=== PATIENT | female | born 1985 | race Caucasian/White ===

== ENCOUNTER 2024-09-14 12:30 | Outpatient (CLI) | payer OTHER, SELFPAY ==
--- NOTE | ~2024-09-14 | MM_ITS ---
EXAMINATION: MM screening heri BI w wander HISTORY: Screening mammogram TECHNIQUE: Craniocaudal and mediolateral oblique 3-D tomosynthesis images were obtained and synthetic 2-D images were generated. CAD analysis was submitted and interpreted. COMPARISON: No prior mammogram is available for comparison at this institution. BREAST PARENCHYMAL COMPOSITION:Not Dense. There are scattered areas of fibroglandular density. FINDINGS: There is a 2.0 x 1.4 cm ovoid mass at the upper, outer right breast. Suspected additional 8 mm mass at the lower, inner right breast. No mass lesion or distortion seen in left breast. No susp icious microcalcifications. IMPRESSION: 2.0 x 1.4 cm upper, outer right breast mass. Suspected additional 8 mm lower, inner right breast mass . Spot compression views and ultrasound recommended for further evaluation. BI-RADS Category 0: Incomplete: Needs additional imaging evaluation. Reviewed, dictated and finalized at location . IMPRESSION: 2.0 x 1.4 cm upper, outer right breast mass. Suspected additional 8 mm lower, i nner right breast mass. Spot compression views and ultrasound recommended for f urther evaluation. BI-RADS Category 0: Incomplete: Needs additional imaging evaluation.
== END 2024-09-14 12:31 | disposition home or self-care (01) ==
LOC: MICIMG 12:31
DX: N63.11 Unspecified lump in the right breast, upper outer quadrant (principal); Z12.31 Encounter for screening mammogram for malignant neoplasm of breast
CPT/HCPCS: 77063; 77067

== ENCOUNTER 2024-10-06 07:45 | Outpatient (CLI) | payer OTHER, SELFPAY ==
--- NOTE | ~2024-10-06 | MMUS_ITS ---
EXAMINATION: MM diagnostic heri RT w wander, US breast RT limited HISTORY: Right breast mass and right breast asymmetry TECHNIQUE: Additional 3-D tomosynthesis images of the right breast were performed and synthetic 2-D i mages were generated. CAD analysis was submitted and interpreted. High resolution limited right breas t ultrasound was performed. COMPARISON: 09/14/2024 BREAST PARENCHYMAL COMPOSITION:Not Dense. There are scattered areas of fibroglandular density. FINDINGS: MAMMOGRAPHIC FINDINGS: Asymmetry at the lower, inner right breast effaces spot compression. There is a persistent low-densit y round mass at the upper, outer right breast measuring 17 mm in diameter. ULTRASOUND: At the 10:00 position right breast, 9 cm the nipple, there is a 1.4 x 1.7 x 1.2 cm hypoechoic solid m ass, parallel, mildly lobulated borders. IMPRESSION: 1.4 x 1.7 x 1.2 cm solid mass at the 10:00 position right breast, as detailed above. Although the ma ss demonstrates predominantly benign imaging characteristics, percutaneous biopsy should be considere d to establish histologic diagnosis. BI-RADS category 4, suspicious findings. Reviewed, dictated and finalized at location M. EL INSTRUCTOR IMPRESSION: 1.4 x 1.7 x 1.2 cm solid mass at the 10:00 position right breast, as detailed above. Although the mass demonstrates predominantly benign imaging characterist ics, percutaneous biopsy should be considered to establish histologic diagnosis . BI-RADS category 4, suspicious findings.
== END 2024-10-06 07:46 | disposition home or self-care (01) ==
PROVIDERS: PCP Internal Medicine; Visit Provider Internal Medicine
DX: R92.8 Other abnormal and inconclusive findings on diagnostic imaging of breast (principal); N63.11 Unspecified lump in the right breast, upper outer quadrant
CPT/HCPCS: 76642; 77061; 77065; G0279

== ENCOUNTER 2025-05-17 08:56 | Outpatient (CLI) | payer OTHER, SELFPAY ==
--- NOTE | ~2025-05-17 | MMUS_ITS ---
EXAMINATION: MM diagnostic heri RT w wander, US breast RT limited HISTORY: Prior benign right breast biopsy TECHNIQUE: 3-D tomosynthesis images of the right breast were performed and synthetic 2-D images were generated. CAD analysis was submitted and interpreted. High resolution limited right breast ultrasoun d was performed. COMPARISON: 10/06/2024, 09/14/2024 BREAST PARENCHYMAL COMPOSITION:Not Dense. There are scattered areas of fibroglandular density. FINDINGS: MAMMOGRAPHIC FINDINGS: Stable 17 millimeter ovoid mass at the upper, outer right breast with associated biopsy clip. There i s a new low-density circumscribed 8mm mass at the slightly inner, probable upper right breast. No emmie picious microcalcifications. ULTRASOUND: At the 2:00 position right breast, 4 cm from nipple, there is a 6 x 2 x 4 mm circumscribed, parallel hypoechoic mass. IMPRESSION: Stable 17 mm upper, outer right breast mass with associated biopsy clip. Probable benign 6 mm mass in the 2:00 position right breast, as above. Six-month follow-up mammogram and ultrasound recommended. BI-RADS category 3, probably benign findings. Reviewed, dictated and finalized at location M. IMPRESSION: Stable 17 mm upper, outer right breast mass with associated biopsy clip. Probable benign 6 mm mass in the 2:00 position right breast, as above. Six-robert h follow-up mammogram and ultrasound recommended. BI-RADS category 3, probably benign findings.
== END 2025-05-17 08:57 | disposition home or self-care (01) ==
PROVIDERS: PCP Internal Medicine; Visit Provider Surgery
DX: N63.11 Unspecified lump in the right breast, upper outer quadrant (principal); R92.8 Other abnormal and inconclusive findings on diagnostic imaging of breast
CPT/HCPCS: 76642; 77061; 77065; G0279

== ENCOUNTER 2025-09-09 12:18 | Emergency (ER) | payer OTHER, SELFPAY ==
--- OUTSIDE RECORDS SUMMARY | 2024-08-17 04:45 | XMS_ITS ---
Author Organization [facility] [employer] [address] [facility] ([address]) Address [address] [place] [phone] Care Team Providers Care Networks Software Consultant Name Role Phone Christophe Banegas MD Primary Care Provider Reilly Kirkland [phone] REASON FOR VISIT BHRT Pellet Insertion #2 Medications Medication SIG (Take, Route, Frequency, Duration) Notes Start Date End Date Status YARD TRUCK DRIVER Thyroid 15 MG 1 tablet on an empty stomach Orally Once a day; Duration: 30 days Patient isn't taking at this time. She is on Levothyroxine and doesn't want to switch. Active YARD TRUCK DRIVER Thyroid 90 MG 1 tablet on an empty stomach Orally Once a day; Duration: 30 days Patient isn't taking. Using Levothyroxine. Active VSL#3 - 2 cap(s) orally once a day Active Social History Sex Assigned At : Social History Observation Description Sex Assigned At Female Encounters Encounter Location Date Provider Diagnosis [facility] [address] [place] [phone] 08/17/2024 Reilly Nixon Hormone replacement therapy Z79.890 and Hypothyroidism, unspecified E03.9 Assessments Encounter Date Diagnosis (ICD Code) Assessment Notes Treatment Notes Treatment Clinical Notes Section Notes 08/17/2024 Hormone replacement therapy (ICD-10 - Z79.890) Pellet insertion #1 05/11/2024 Post-insertion labs 06/22/2024 Pellet insertion #2 08/17/2024 Pellet Insertion #3 11/09/2024 (or first week of 2024) Testosterone only HBRT - 150 mg daily - no estrogen replacement. Check labs in 6 weeks. Pellet #2 in 3-4 months. Was encourgaed to start YARD TRUCK DRIVER Thyroid and transition off Synthroid but not taking. Consider starting Iodine and DIM. 08/17/2024 Hypothyroidism, unspecified (ICD-10 - E03.9) Plan Of Treatment Medication Medication Name Sig Start Date Stop Date Notes YARD TRUCK DRIVER Thyroid 15 MG 1 tablet on an empty stomach Orally Once a day; Duration: 30 days Patient isn't taking at this time. She is on Levothyroxine and doesn't want to switch. YARD TRUCK DRIVER Thyroid 90 MG 1 tablet on an empty stomach Orally Once a day; Duration: 30 days Patient isn't taking . Using Levothyroxine. Treatment Notes Assessment Notes Hormone replacement therapy Pellet insertion #1 05/11/2024 Post-insertion labs 06/22/2024 Pellet insertion #2 08/17/2024 Pellet Insertion #3 11/09/2024 (or first week of 2024) Testosterone only HBRT - 150 mg daily - no estrogen replacement. Check labs in 6 weeks. Pellet #2 in 3-4 months. Was encourgaed to start YARD TRUCK DRIVER Thyroid and transition off Synthroid but not taking. Consider starting Iodine and DIM. Next Appt Details Follow Up: 3 Months, Reason: BHRT Pellet Insertion Procedure Notes * Category Sub-Category Detail Notes Quell: Metabolic, Hormone, BHRT Pellet Insertion Female Pellet Insertion Testosterone Pellet 1: TESTOSTERONE 100 mg (C-III) Lot Number:: [id number] Expiration:: 01/21/2025 Testosterone Pellet 2: TESTOSTERONE 50 m g (C-III) Lot Number:: [id number] Expiration:: 01/15/2025 Estrogen Pellet: None Insertion Site:: Left buttock (upper out er quadrant) Procedure Note:: The left bu ttock was sterilized and draped, The insertion site was anesthetized with a mixture of 1% lidocaine, 1% lidocaine with epinephrine and sodium bicarbonate, A scalpel was used to make a 5 mm incision, The trocar was inserted in the line of anesthetized tissue and the pellet(s) were inserted, The trocar was removed and a 2X2 dressing was placed over the site and pressure was held for 3 minutes, The 2x2 was then disposed and site was closed with 3 Steri-Strips placed with alternating tension and a fresh folded 2X2 was placed on top of the Steri-Strips and site covered with a Tegaderm, Post-care instruction were provided, and no submersion or LE exercise for at least 72 hours, Report any wound changes, constitutional symptoms or pellet extrusion(s). Progress Notes * ADAN February OB: 3 (40 yo F)Acc No.[id number]:08/17/2024 EP Pellet Insertion Patient: Kevin HEMPHILL February Jarad Provider: Edward Nixon MD :1985 A ge:39 Y S ex:Female Date:08/17/2024 Address:[address] [place], [place] [phone] Pcp:Christophe Banegas MD Subjective: * Chief Complaints: * 1 . BHRT Pellet Insertion #2. * HPI: * Introduction: The risks, benefits & alternatives were discussed regarding available treatment options. A treatment path was determined after reviewing the patients medical records, our verbal discussions and via joint decision-making Consents for our planned treatments were signed and are on file. * Medical History: * Medications: T aking YARD TRUCK DRIVER Thyroid 90 MG Tablet 1 tablet on an empty stomach Orally Once a day , Notes to Pharmacist: Start 90 mg AM x 1 week, then increase to 105 mg thereafter as tolerated and stop all forms of other thyroid supplementation., Taking YARD TRUCK DRIVER Thyroid 15 MG Tablet 1 tablet on an empty stomach Orally Once a day , Notes to Pharmacist: Add 15 mg to 90 mg after 1 week of 90 mg AM for a total of 105 mg daily thereafter as tolerated., Taking VSL#3 - capsule 2 cap(s) orally once a day Objective: * Vitals: Assessment: * Assessment: 1. H ormone replacement therapy - Z79.890 (Primary) 2 . H ypothyroidism, unspecified - E03.9 Plan: * Treatment: 2. H ypothyroidism, unspecified Hold YARD TRUCK DRIVER Thyroid Tablet, 90 MG, 1 tablet on an empty stomach, Orally, Once a day, 30 days, 30, Refills 1, Notes to Pharmacist: Patient isn't taking. Using Levothyroxine.; H old YARD TRUCK DRIVER Thyroid Tablet, 15 MG, 1 tablet on an empty stomach, Orally, Once a day, 30 days, 30, Refills 1, Notes to Pharmacist: Patient isn't taking at this time. She is on Levothyroxine and doesn't want to switch.. * Procedures: Q uell: Metabolic, Hormone, BHRT Pellet Insertion: Female Pellet Insertion T estosterone Pellet 1 T ESTOSTERONE 100 mg (C-III) L ot Number: [id number] E xpiration: 0 01/21/2025 T estosterone Pellet 2 T ESTOSTERONE 50 mg (C-III) L ot Number: [id number] E xpiration: 0 01/15/2025 E strogen Pellet N one I nsertion Site: L eft buttock (upper outer quadrant) P rocedure Note: T he left buttock was sterilized and draped, The insertion site was anesthetized with a mixture of 1% lidocaine, 1% lidocaine with epinephrine and sodium bicarbonate, A scalpel was used to make a 5 mm incision, The trocar was inserted in the line of anesthetized tissue and the pellet(s) were inserted, The trocar was removed and a 2X2 dressing was placed over the site and pressure was held for 3 minutes, The 2x2 was then disposed and site was closed with 3 Steri-Strips placed with alternating tension and a fresh folded 2X2 was placed on top of the Steri-Strips and site covered with a Tegaderm, Post-care instruction were provided, and no submersion or LE exercise for at least 72 hours, Report any wound changes, constitutional symptoms or pellet extrusion(s). * Follow Up: 3 Months (Reason: BHRT Pellet Insertion) * Billing Information: * Visit Code: * Procedure Codes: 34807 Quell BHRT Female Pellet Insertion (Employee). * Electronic signature of Pam Nixon MD, FAAAAI on 09/09/2025 at 12:22 PM CDT Sign off status: Pending * Provider: Edward Nixon MD Date: Generated for Violet marquez/Edgar/Kimmieitting on: 12:22 PM CDT History and Physical Notes * HPI (History of Present Illness) Category Sub-Category Detail Notes Category Not es *Introduction The risks, shwetha efits & alternatives were discussed regarding available treatment options. A treatment path was determined after reviewing the patients medical records, our verbal discussions and via joint decision-making Consents for our planned treatments were signed and are on file
--- OUTSIDE RECORDS SUMMARY | 2024-12-20 12:30 | XMS_ITS ---
Author Organization [facility] [employer] [place] ([address]) Address [address] [place] [phone] Care Team Providers Care Shingle Shearing Machine Operator Name Role Phone Makenzie CHAIREZ, Christophe Primary Care Provider Reilly Kirkland [phone] REASON FOR VISIT BHRT Pellet Insertion Social History Sex Assigned At : Social History Observation Description Sex Assigned At Female Encounters Encounter Location Date Provider Diagnosis [facility] [employer] [facility] ([address]) [address] [place] [phone] 12/20/2024 Reilly Nixon Plan Of Treatment No Information Progress Notes * Nila ARELLANO MDOB: 3 (40 yo F)Acc No.[id number]:12/20/2024 EP Pellet Insertion Patient: Nila PARNELL Provider: Edward Nixon MD :1985 A ge:39 Y S ex:Female Date:12/20/2024 Address:[address] [place], [place] [phone] Pcp:Christophe Banegas MD Subjective: * Chief Complaints: * 1 . BHRT Pellet Insertion. * Medical History: Objective: * Vitals: Assessment: Plan: * Treatment: * Billing Information: * Visit Code: * Procedure Codes: * Electronic signature of Pam Nixon MD, FAAAAI on 09/09/2025 at 12:21 PM CDT Sign off status: Pending * Provider: Edward Nixon MD Date: 12/20/2024 Generated for Printi ng/Faxing/eTransmitting on: 1 12:21 PM CDT
--- OUTSIDE RECORDS SUMMARY | 2025-01-03 08:45 | XMS_ITS ---
Author Organization [facility] ([address]) Address [address] [place] [phone] Care Team Providers Care Captain/Airline Pilot Name Role Phone Christophe Banegas MD Primary Care Provider Reilly Kirkland [phone] REASON FOR VISIT BHRT Pellet Insertion Medications Medication SIG (Take, Route, Frequency, Duration) Notes Start Date End Date Status WINDER HAND Thyroid 90 MG 1 tablet on an empty stomach Orally Once a day; Duration: 30 days Patient isn't taking. Using Levothyroxine. Active VSL#3 - 2 cap(s) orally once a day Active WINDER HAND Thyroid 15 MG 1 tablet on an empty stomach Orally Once a day; Duration: 30 days Patient isn't taking at this time. She is on Levothyroxine and doesn't want to switch. Active Fluconazole 150 MG 1 tablet Orally; Duration: 10 days 09/16/2024 Active Amoxicillin 500 MG 1 capsule Orally every 8 hrs; Duration: 5 days 09/13/2024 Active Social History Sex Assigned At : Social History Observation Description Sex Assigned At Female Encounters Encounter Location Date Provider Diagnosis [facility] ([address]) [address] [place] [phone] 01/03/2025 Reilly Nixon Hormone replacement therapy Z79.890 Assessments Encounter Date Diagnosis (ICD Code) Assessment Notes Treatment Notes Treatment Clinical Notes Section Notes 01/03/2025 Hormone replacement therapy (ICD-10 - Z79.890) Plan Of Treatment No Information Procedure Notes * Category Sub-Category Detail Notes Quell: Metabolic, Hormone, BHRT Pellet Insertion Female Pellet Insertion Testosterone Pellet 1: TESTOSTERONE 100 mg (C-III) Lot Number:: [id number] Expiration:: 06/16/2025 Testosterone Pellet 2: TESTOSTERONE 50 m g (C-III) Lot Number:: [id number] Expiration:: 01/16/2025 Testosterone Pellet 3: None Testosterone/Anastrozole Pellet: None Estrogen Pellet: None Insertion Site:: Right Buttock (upper ou ter quadrant) Procedure Note:: The right b uttock was sterilized and draped, The insertion site [...] ADAN February OB: 3 (40 yo F)Acc No.[id number]:01/03/2025 EP Pellet Insertion Patient: Kevin HEMPHILL Nila Jarad Provider: Edward Nixon MD :1985 A ge:39 Y S ex:Female Date:01/03/2025 Address:[address] [place], [place] [phone] Pcp:Christophe Banegas MD Subjective: * Chief Complaints: * 1 . BHRT Pellet Insertion. * Medical History: * Medications: T aking VSL#3 - capsule 2 cap(s) orally once a day , Taking WINDER HAND Thyroid 90 MG Tablet 1 tablet on an empty stomach Orally Once a day , Notes to Pharmacist: Patient isn't taking. Using Levothyroxine., Taking WINDER HAND Thyroid 15 MG Tablet 1 tablet on an empty stomach Orally Once a day , Notes to Pharmacist: Patient isn't taking at this time. She is on Levothyroxine and doesn't want to switch., Taking Amoxicillin 500 MG Capsule 1 capsule Orally every 8 hrs , Taking Fluconazole 150 MG Tablet 1 tablet Orally Objective: * Vitals: Assessment: * Assessment: 1. H ormone replacement therapy - Z79.890 (Primary) Plan: * Treatment: * Procedures: Q uell: Metabolic, Hormone, BHRT Pellet Insertion: Female Pellet Insertion T estosterone Pellet 1 T ESTOSTERONE 100 mg (C-III) L ot Number: [id number] E xpiration: 0 06/16/2025 T estosterone Pellet 2 T ESTOSTERONE 50 mg (C-III) L ot Number: [id number] E xpiration: 0 01/16/2025 T estosterone Pellet 3 N one T estosterone/Anastrozole Pellet N one E strogen Pellet N one I nsertion Site: R ight Buttock (upper outer quadrant) P rocedure Note: T he right buttock was sterilized and draped, The insertion [...] changes, constitutional symptoms or pellet extrusion(s). * Billing Information: * Visit Code: * Procedure Codes: * Electronic signature of Pam Nixon MD, FAAAAI on 09/09/2025 at 12:21 PM CDT Sign off status: Pending * Provider: Edward Nixon MD Date: 0 01/03/2025 Generated for Violet marquez/Edgar/Mikhail on: 12:21 PM CDT
--- OUTSIDE RECORDS SUMMARY | 2025-01-12 04:45 | XMS_ITS ---
Author Organization [facility] ([address]) Address [address] [place] [phone] Care Team Providers Care Supervisor Hydrochloric Area Name Role Phone Christophe Banegas MD Primary Care Provider Reilly Kirkland [phone] REASON FOR VISIT B12 IM injection; Right Deltoid Medications Medication SIG (Take, Route, Frequency, Duration) Notes Start Date End Date Status Amoxicillin 500 MG 1 capsule Orally every 8 hrs; Duration: 5 days 09/13/2024 Active ABSENCE MANAGEMENT CONSULTANT Thyroid 15 MG 1 tablet on an empty stomach Orally Once a day; Duration: 30 days Patient isn't taking at this time. She is on Levothyroxine and doesn't want to switch. Active Fluconazole 150 MG 1 tablet Orally; Duration: 10 days 09/16/2024 Active ABSENCE MANAGEMENT CONSULTANT Thyroid 90 MG 1 tablet on an empty stomach Orally Once a day; Duration: 30 days Patient isn't taking. Using Levothyroxine. Active VSL#3 - 2 cap(s) orally once a day Active Social History Sex Assigned At : Social History Observation Description Sex Assigned At Female Encounters Encounter Location Date Provider Diagnosis [facility] ([address]) [address] [place] [phone] 01/12/2025 Reilly Nixon Plan Of Treatment No Information Progress Notes * Nila ARELLANO MDOB: 3 (40 yo F)Acc No.[id number]:01/12/2025 Purchase Patient: Nila PARNELL Jarad Provider: Edward Nixon MD :1985 A ge:39 Y S ex:Female Date:01/12/2025 [phone] Pcp:Christophe Banegas MD Subjective: * Chief Complaints: * 1 . B12 IM injection; Right Deltoid. * Medical History: * Medications: T aking VSL#3 - capsule 2 cap(s) orally once a day , Taking ABSENCE MANAGEMENT CONSULTANT Thyroid 90 MG Tablet 1 tablet on an empty stomach Orally Once a day , Notes to Pharmacist: Patient isn't taking. Using Levothyroxine., Taking ABSENCE MANAGEMENT CONSULTANT Thyroid 15 MG Tablet 1 tablet on an empty stomach Orally Once a day , Notes to Pharmacist: Patient isn't taking at this time. She is on Levothyroxine and doesn't want to switch., Taking Amoxicillin 500 MG Capsule 1 capsule Orally every 8 hrs , Taking Fluconazole 150 MG Tablet 1 tablet Orally Objective: * Vitals: Assessment: Plan: * Treatment: * Billing Information: * Visit Code: * Procedure Codes: * Electronic signature of Pam Nixon MD, FAAAAI on 09/09/2025 at 12:22 PM CDT Sign off status: Pending * Provider: Edward Nixon MD Date: 0 01/12/2025 Generated for Violet marquez/Edgar/Kimmieitting on: 1 12:22 PM CDT
--- OUTSIDE RECORDS SUMMARY | 2025-05-23 12:30 | XMS_ITS ---
Author Organization [facility] [employer] [place] ([address]) Address [address] [place] [phone] Care Team Providers Care Outreach Analyst Name Role Phone Makenzie CHAIREZ, Christophe Primary Care Provider Reilly Kirkland [phone] REASON FOR VISIT BHRT Pellet Insertion Social History Sex Assigned At : Social History Observation Description Sex Assigned At Female Encounters Encounter Location Date Provider Diagnosis [facility] [employer] [facility] ([address]) [address] [place] [phone] 05/23/2025 Reilly Nixon Plan Of Treatment No Information Progress Notes * Nila ARELLANO MDOB: 3 (40 yo F)Acc No.[id number]:05/23/2025 EP Pellet Insertion Patient: Nila PARNELL Provider: Edward Nixon MD :1985 A ge:39 Y S ex:Female Date:05/23/2025 Address:[address] [place], [place] [phone] Pcp:Christophe Banegas MD Subjective: * Chief Complaints: * 1 . BHRT Pellet Insertion. * Medical History: Objective: * Vitals: Assessment: Plan: * Treatment: * Billing Information: * Visit Code: * Procedure Codes: * Electronic signature of Pam Nixon MD, FAAAAI on 09/09/2025 at 12:22 PM CDT Sign off status: Pending * Provider: Edward Nixon MD Date: 0 05/23/2025 Generated for Printi ng/Faxing/eTransmitting on: 1 12:22 PM CDT
--- OUTSIDE RECORDS SUMMARY | 2025-09-09 12:21 | XMS_ITS | Clinical Summary ---
Author Organization [facility] Address [address] [place] [address] Care Team Providers Care Photonics Technician Name Role Phone Unavailable Primary Care Provider Unavailabl e Source Comments [facility],non-owned Affiliates and Associated Physician Practices is amultiple site organization consisting of ambulatory clinics and hospital sitesin [place], [place], [place] and [place]. This disclosure is being madepursuant to the Care Everywhere program and may not contain all information available regarding this patient. Last updated 18.[facility] Social History Tobacco Use Types Packs/Day Years Used Date Smoking Tobacco: Never Assessed Comments Unknown Sex and Gender Information Value Date Recorded Sex Assigned at Not on file Legal Sex Female 3:28 PM CDT Gender Identity Not on file Sexual Orientation Not on file Plan of Treatment Health Maintenance Due Date Last Done Comments LIPID TESTING 1985 MAMMOGRAM 1985 HIV SCREENING 1998 HEPATITIS C SCREENING 05/26/2001 DTAP/TDAP/TD VACCINES (1 - Tdap) 2002 HEPATITIS B VACCINE (1 of 3 - 19+ 3-dose series) 2002 HPV VACCINE (1 - 3-dose SCDM series) 2010 DEPRESSION SCREENING 11/17/2024 COVID-19 VACCINE (1 - 2023-2 5 season) 2025 INFLUENZA VACCINE (#1) 2025 ZOSTER VACCINE (1 of 2) 2033 HIB VACCINE Aged Out No longer eligi ble based on patient's age to complete this topic MENINGOCOCCAL (Group B) VACC INE SHARED DECISION-MAKING Aged Out No longer eligibl e based on patient's age to complete this topic MENINGOCOCCAL GROUPS A/C/Y/W VACCINE Aged Out No longer eligible b ased on patient's age to complete this topic PNEUMOCOCCAL VACCINE Aged Out No long er eligible based on patient's age to complete this topic Insurance [facility]
--- OUTSIDE RECORDS SUMMARY | 2025-09-09 12:21 | XMS_ITS | Clinical Summary ---
Author Organization [facility] [address] [facility] Address 130 [facility] [place] [address] Care Team Providers Care Electric Detector Operator Name Role Phone Christophe Banegas MD Primary Care Provider + Allergies Active Allergy Reactions Criticality Noted Date Comments Meloxicam Rash Medium 04/02/2019 rash Morphine Itching Low 08/24/2014 Itching Medications cetirizine (ZyrTEC) 10 mg tablet Take 1 tablet (10 mg total) by mouth daily Takes 2 tablets daily Active predniSONE (DELTASONE) 20 mg tabletIndicatio ns:Olecranon bursitis of right elbow Two tablets once a day for 5 days, after that 1 tablet once a day for 5 days 15 tablet 01/14/20 25 Active traMADoL (ULTRAM) 50 mg tabletIndicatio ns:Olecranon bursitis of right elbow Take 1 tablet (50 mg total) by mouth every 6 (six) hours as needed for pain for up to 7 days 28 tablet 02/12/20 25 Active valACYclovir (VALTREX) 500 mg tabletIndicatio ns:Herpes simplex Take 2 tablets (1,000 mg total) by mouth 2 (two) times a day as needed (cold sores) 28 tablet 1 06/17/20 25 Active ondansetron (ZOFRAN) 4 mg tabletIndicatio ns:Nausea and vomiting, unspecified vomiting type,Family history of colon cancer,Dysphagi a, unspecified type Take 1 tablet (4 mg) total 30 minutes before starting colonoscopy prep. Use the 2nd tablet as needed for nausea and vomiting. 2 tablet 06/23/20 25 Active LORazepam (ATIVAN) 0.5 mg tabletIndicatio ns:anxiety Take 1 tablet (0.5 mg total) by mouth every 6 (six) hours as needed for anxiety 30 tablet 07/08/20 25 Active phentermine (ADIPEX-P) 37.5 mg tablet Take 1 tablet (37.5 mg total) by mouth daily before breakfast 30 tablet 07/28/20 25 Active butalbital-acet aminophen-caffe ine (ESGIC) 50-325-40 mg per tabletIndicatio ns:Tension headache Take 1 tablet by mouth every 6 (six) hours as needed for headaches 30 tablet 08/02/20 25 Active levothyroxine (SYNTHROID) 175 mcg tabletIndicatio ns:Hypothyroidi sm due to Veena's thyroiditis TAKE 1 TABLET(175 MCG) BY MOUTH DAILY 90 tablet 1 08/15/20 25 Active levothyroxine (SYNTHROID) 175 mcg tabletIndicatio ns:Hypothyroidi sm due to Veena's thyroiditis Take 1 tablet (175 mcg total) by mouth daily 30 tablet 1 06/13/20 25 025 Discontinued Active Problems Problem Noted Date Diagnosed Date Dysphagia 06/17/2025 Assessment & Plan (06/17/2025 11:45 AM CDT): Will refer to GI for EGD Generalized anxiety disorder 06/19/2023 Assessment & Plan (06/17/2025 11:39 AM CDT): Stable.Taking lorazepam infrequently Assessment & Plan (04/16/2024 10:36 AM CDT): Doing better. Taking lorazepam rarely.. Assessment & Plan (06/19/2023 3:57 PM CDT): Situational. Pt needs something short term to calm down.Will consider lorazepam as needed only. If will need to cont over 1 mo, will consider something else like zoloft. Herpes simplex 01/20/2023 Assessment & Plan (06/17/2025 11:39 AM CDT): Recurrent, oral. Need valacyclovir on PRN basis. Assessment & Plan (04/16/2024 10:16 AM CDT): Recurrent, oral. Need valacyclovir on PRN basis. Assessment & Plan (01/20/2023 8:50 AM MOVIE EDITOR): Recurrent, oral. Need valacyclovir on PRN basis. Wellness examination 04/22/2022 Assessment & Plan (06/17/2025 11:50 AM CDT): Patient follows for mammogram every 6 months with general surgeon due to abnormal findings, biopsy was benign. Stress weight loss. Due to history of hysterectomy does not need Pap. Assessment & Plan (04/16/2024 10:17 AM CDT): Screening mammogram ordered last month, patient encouraged to schedule. Assessment & Plan (04/22/2022 10:30 AM CDT): Stress weight loss. History of hysterectomy, no need for Paps. Most recent labs 3 months ago, cholesterol and blood sugar were good. Family history of colon cancer 04/19/2022 Assessment & Plan (06/17/2025 11:43 AM CDT): Sister was diagnosed with neuroendocrine colon cancer in 2022 at 36. Pt needs colonoscopy since 2022, didn't have insurance at that time. Will refer now. Assessment & Plan (04/16/2024 10:15 AM CDT): Sister was diagnosed with neuroendocrine colon cancer in 2022 at 36. Pt needs colonoscopy since last year, didn't have insurance at that time. Will refer now. Assessment & Plan (01/20/2023 8:36 AM MOVIE EDITOR): Sister was diagnosed with neuroendocrine colon cancer, she is 36. Pt needs colonoscopy but don't have insurance now. Will consider doing it as soon she gets insurance. Assessment & Plan (04/19/2022 9:19 AM CDT): Sister was diagnosed with neuroendocrine colon cancer, she is 36. Pt is changing jobs and wanted to check first what insurance she will have and will call us back for referral for colonoscopy. Tension headache 01/07/2022 Assessment & Plan (06/17/2025 11:38 AM CDT): Stable on Fioricet as needed. Assessment & Plan (04/16/2024 10:20 AM CDT): Stable on Fioricet as needed. Assessment & Plan (01/20/2023 8:45 AM MOVIE EDITOR): Stable on Fioricet as needed. Assessment & Plan (04/19/2022 9:02 AM CDT): Better now.Doing chiro and massages. Assessment & Plan (01/07/2022 4:08 PM MOVIE EDITOR): Normal neurological exam. Most likely tension headaches. Onset 1 week ago. Will try Fioricet. Contact our office if no improvement after treatment, develop new symptoms or feeling worse at any point. Fatigue 07/29/2018 Assessment & Plan (06/17/2025 11:47 AM CDT): Patient requested to check testosterone level. She used to do pallets treatment due to low testosterone level and fatigue. Did not do treatments for few months, feeling more tired again. Assessment & Plan (07/09/2019 2:17 PM CDT): Not improved with increasing levothyroxine. Pt has poor sleep, snores. Pt wants to try to lose weight on her own, will call back if will decide to go with sleep study. 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 Overview (01/14/2022): Thyroid peroxidase 245 on 01/14/22 Assessment & Plan (06/17/2025 11:49 AM CDT): Stable on synthroid, thyroid function was normal 1 y ago. Due to check now. Assessment & Plan (04/16/2024 10:16 AM CDT): Stable on synthroid, thyroid function was normal 5 months ago. Assessment & Plan (01/20/2023 8:37 AM MOVIE EDITOR): Cont synthroid, due for TSH. Assessment & Plan (04/19/2022 9:09 AM CDT): Due to check TSH. Otherwise, cont synthroid. Assessment & Plan (09/14/2021 9:15 AM CDT): Stable on Synthroid. Labs ordered. Patient will do it in November when will get insurance. Assessment & Plan (08/02/2020 12:49 PM CDT): Stable on levothyroxine Assessment & Plan (07/09/2019 2:14 PM CDT): levothyroxin was increased from 25 to 50 mg in May, pt advised is due for labs, order on chart. Morbid obesity with BMI of 40.0-44.9, adult 03/18 Assessment & Plan (06/17/2025 11:48 AM CDT): Worsening. BMI Follow-up includes: nutrition counseling. Stress weight loss. Pt didn't take phentermine for 2 weeks, will restart now. Resolved Problems Problem Noted Date Diagnosed Date Resolved Date Olecranon bursitis of right elbow 01/14/2025 06/17/2025 Assessment & Plan (01/14/2025 8:01 AM MOVIE EDITOR): With proximal lateral extensor tendonitis. Ibuprofen alone didn't help. Will try prednisone taper and tramadol for pain. For now hold ibuprofen. Also start using tennis elbow brace daily. Discussed with patient, if will not see any improvement in 7-10 days, call back for referral to ortho to try steroid injection and also physical therapy order Acute bronchitis 03/16/2024 04/02/2024 Assessment & Plan (03/16/2024 1:22 PM CDT): Contact our office if no improvement after treatment, develop new symptoms or feeling worse at any point. Pharyngitis 12/01/2023 03/16/2024 Assessment & Plan (12/01/2023 10:14 AM MOVIE EDITOR): COVID exposure last week. Home COVID test was negative today. Will treat with antibiotic and Medrol Dosepak. Stay home till 12/03. Contact our office if no improvement after treatment, develop new symptoms or feeling worse at any point. Acute viral conjunctivitis of right eye 08/27/2022 01/20/2023 Multiple thyroid nodules 04/22/2022 Assessment & Plan (04/16/2024 10:33 AM CDT): Per thyroid ultrasound in 2018 no malignant features, enlarged thyroid without nodules. For that reason pt doesn;t need follow up US and I remove diagnosis of thyroid nodules. Assessment & Plan (01/20/2023 8:44 AM MOVIE EDITOR): Per thyroid ultrasound in 2018. At that time did not have any malignant features, did not require biopsy. Repeat thyroid ultrasound was ordered last year, was not done. Pt doesn't have insurance now, will consider when will have it again. Assessment & Plan (04/22/2022 10:32 AM CDT): Per thyroid ultrasound in 2018. At that time did not have any malignant features, did not require biopsy. Will order thyroid ultrasound to follow-up. Polyarthralgia 04/19/2022 01/20/2023 Assessment & Plan (04/19/2022 9:04 AM CDT): Will check labs to r/o autoimmune. Influenza A 01/20/2020 08/02/2020 Assessment & Plan (01/20/2020 9:08 AM MOVIE EDITOR): Test is positive for influenza A. Stay off work till 01/23. Stay hydrated. Take motrin for fever as needed. Reactive airway disease 10/01/201907/18 Assessment & Plan (10/01/2019 9:13 AM MOVIE EDITOR): No h/o asthma, was possibly provoked by recent viral URI. Will try singulair for 4 weeks. Reassess if needed after that. Pt declined rx for albuterol. Stated has it at home. Class 2 obesity due to exces s calories with body mass index (BMI) of 39.0 to 39.9 in adult 07/09/2019 06/17/2025 Assessment & Plan (04/16/2024 10:17 AM CDT): Improving, lost 20 lb since last April. Assessment & Plan (01/20/2023 8:42 AM MOVIE EDITOR): Improving, lost 20 lb since last April. Assessment & Plan (04/19/2022 9:11 AM CDT): BMI Follow-up includes: nutrition counseling.Stress weight loss. Assessment & Plan (09/14/2021 9:04 AM CDT): Improving,pt lost 6 lb and working to lose more. Assessment & Plan (08/03/2020 2:29 PM CDT): BMI Follow-up includes: exercise counseling. Discussed options for weight loss. Discussed gastric bypass vs lap band vs. gastric sleeve. Assessment & Plan (07/09/2019 2:18 PM CDT): Worsening, will stop viibryd to see if that will help. Mild episode of recurrent ma vik depressive disorder 07/29/2018 01/20/2023 Assessment & Plan (04/19/2022 9:10 AM CDT): Stable off meds. Assessment & Plan (09/14/2021 9:18 AM CDT): Worsening again. Patient requested to get back on it because it worked well and was well tolerated. I discussed possibility of weight gain. Patient will watch more closely. If will start gaining weight, she will discontinue it. Assessment & Plan (07/09/2019 2:13 PM CDT): Pt requested to d/c viibryd due to weight gain despite all efforts. Pt advised to decrease and take 10 mg qd for one week and stop it. Samples provided Encounters Date Type Department Care Team Description 06/27/2025 Results Follow-Up [facility] [address] [place] [address] Norma Lyon PA Comprehensive metabolic panel, TSH, Lipid panel, Additional followed-up results: 2 06/23/2025 Orders Only [facility] at [address] [place] [address] Bairon Bill MD Nausea and vomiting, unspecified vomiting type (Primary Dx); Family history of colon cancer; Dysphagia, unspecified type 06/17/2025 11:00 AM CDT Office Visit [facility] [address] [place] [address] Norma Lyon PA Wellness examination (Primary Dx); Tension headache; 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; Herpes simplex; Generalized anxiety disorder; Family history of colon cancer; Fatigue, unspecified type; Morbid obesity with BMI of 40.0-44.9, adult (HCC); Screening for cardiovascular condition; Screening for diabetes mellitus; Dysphagia, unspecified type from Last 3 Months Immunizations Immunization Administration Dates Next Due Influenza, Quadrivalent, Spl it, Preservative Free, Intramuscular 08/03/2020 Influenza, Unspecified 06/17/2025(Deferr ed: Patient decision),01/14/2025(Deferred: Patient decision),08/17/2024,12/01/2023(Deferr ed: Patient decision),06/19/2023(Deferred: Patient decision) Tdap 11/19/2010 Surgical History Surgery Date Site/Laterality Comments SECTION 2005, 2007, 2010 TUBAL LIGATION 11/17/2010 - 11/16/2011 HYSTERECTOMY 11/17/2013 - 11/16/2014 FRACTURE SURGERY Left ankle MOLE REMOVAL 03/17/2020 - 04/16/[address] Cabrales. Rt neck BREAST BIOPSY 11/03/2024 Right Medical History Medical History Date Comments Major depressive disorder, recurrent, mild Gastroesophageal reflux disease without esophagi tis Hypothyroidism Family History Medical History Relation Name Comments Heart disease Father Montrell Hypertension Father Montrell No Known Problems Mother Relation Name Status Comments Father Montrell Mother Alive Social History Tobacco Use Types Packs/Day Years Used Date Smoking Tobacco: Never Smokeless Tobacco: Never Tobacco Cessation:Counseling Given: Not Answered Alcohol Use Standard Drinks/Week Comments Yes 0 (1 standard drink = 0.6 oz pur e alcohol) rarely AUDIT-C Answer Date Recorded Q1: How often do you have a drink containing alc ohol? Monthly or less 06/17/2025 Q2: How many drinks containi ng alcohol do you have on a typical day when you are drinking? 1 or 2 06/17/2025 Q3: How often do you have si x or more drinks on one occasion? Never 06/17/2025 PHQ-2 Answer Date Recorded PHQ-2 Total Score 0 06/17/2025 Comments Unknown Sex and Gender Information Value Date Recorded Sex Assigned at Not on file Legal Sex Female 7:34 PM MOVIE EDITOR Gender Identity Female 04/16/2024 9:25 AM CDT Sexual Orientation Not on file Obstetrics History Last Filed Vital Signs Vital Sign Reading Time Taken Comments Blood Pressure 130/70 06/17/2025 11:09 AM CDT Pulse 68 06/17/2025 11:09 AM CDT Temperature 36.6 C (97.8 F) 06/17/2025 11:09 AM CDT Respiratory Rate 16 06/17/2025 11:09 AM CDT Oxygen Saturation 99% 06/17/2025 11:09 AM CDT Inhaled Oxygen Concentration - - Weight 109.1 kg (240 lb 8 oz) 06/17/2025 11:09 A M CDT Height 163.8 cm (5' 4.5) 06/17/2025 11:09 AM CD T Body Mass Index 40.64 06/17/2025 11:09 AM CDT Plan of Treatment Health Maintenance Due Date Last Done Comments Hepatitis C Screening 1983 Varicella Vaccines (1 of 2 - 13+ 2-dose series) 1996 Hepatitis B Screening 2001 HPV Vaccines (1 - 3-dose SCDM series) 2010 DTaP/Tdap/Td Vaccine (2 - Td or Tdap) 11/19/2020 11/19/2010 Covid-19 Vaccine (3 - season) 2025 12/28/2020, 11/30/2020 Influenza Vaccine (#1) 2025 08/17/2024, 2019 Breast Cancer Screening-Mammogram 09/14/2025 09/14/2024 Depression Screening 06/17/2026 06/17/2025, 04/16/2024, 12/01/2023, Additional history exists Regular Well Visit/Exam 18-64 06/17/2026 06/17/2025, 04/16/2024, 04/19/2022 Cervical Cancer Screening Discontinued 06/01/2014 Pneumococcal vaccine <65 Aged Out No longer eligible based on patient's age to complete this topic Procedures Procedure Name Priority Date/Time Associated Diagnosis Comments CBC WITH AUTO DIFFERENTIAL Routine 06/24/2025 8:00 AM CDT Fatigue, unspecified type TOTAL TESTOSTERONE Routine 06/24/2025 8: 00 AM CDT Fatigue, unspecified type LIPID PANEL Routine 06/24/2025 8:00 AM CDT Screening for cardiovascular condition TSH Routine 06/24/2025 8:00 AM CDT 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 COMPREHENSIVE METABOLIC PANEL Routine 06/24/2025 8:00 AM CDT Screening for diabetes mellitus MAMMOGRAPHY Schedule Routine, Read Routine (OP Routine) 09/14/2024 4:14 PM CDT THINPREP PAP Routine 06/01/2014 9:15 AM CDT from Last 3 Months or Most Recently Relevant to Health Maintenance Results * CBC with auto differential (06/24/2025 8:00 AM CDT) WBC 8.6 3.4 - 10.8 x10E3/uL [facility] - 01 RBC 4.91 3.77 - 5.28 x10E6/uL [facility] - 01 Hgb 14.5 11.1 - 15.9 g/dL [facility] - 01 Hct 43.8 34.0 - 46.6 % [facility] - 01 MCV 89 79 - 97 fL [facility] - 01 MCH 29.5 26.6 - 33.0 pg [facility] - 01 MCHC 33.1 31.5 - 35.7 g/dL [facility] - 01 Rdw 12.6 11.7 - 15.4 % [facility] - 01 Platelets 405 150 - 450 x10E3/uL [facility] - 01 Neutrophils pct 67 Not Estab. % [facility] - 01 Lymphs pct 25 Not Estab. % [facility] - 01 Monocytes pct 6 Not Estab. % [facility] - 01 Eosinophils pct 2 Not Estab. % [facility] - 01 Basophil pct 0 Not Estab. % [facility] - 01 Neutrophil abs 5.8 1.4 - 7.0 x10E3/uL [facility] - 01 Lymphs (Absolute) 2.2 0.7 - 3.1 x10E3/uL [facility] - 01 Monocyte abs 0.5 0.1 - 0.9 x10E3/uL [facility] - 01 Eosinophils, abs 0.1 0.0 - 0.4 x10E3/uL [facility] - 01 Basophils, abs 0.0 0.0 - 0.2 x10E3/uL [facility] - 01 Immature Granulocytes 0 Not Estab. % [facility] - 01 Immature Grans (Abs) 0.0 0.0 - 0.1 x10E3/uL [facility] - 01 Blood 06/24/2025 8:00 AM CDT 06/24/2025 Narrative [facility] - 06/25/2025 7:09 AM CDT Performed at: 01 - [facility] [address] [id number] Rehab Director Occupational Therapist: Varun Sorto PhD, Phone: [phone] us Norma ADAMSON LAB BLOOD ORDERABLES Final Result [facility] - 01 * TSH (06/24/2025 8:00 AM CDT) TSH 4.270 0.450 - 4.500 uIU/mL [facility] - 01 Blood 06/24/2025 8:00 AM CDT 06/24/2025 Narrative [facility] - 06/25/2025 12:10 PM CDT Performed at: [address] [place] [id number] Rehab Director Occupational Therapist: Varun Sorto PhD, Phone: [phone] Norma ADAMSON LAB BLOOD ORDERABLES Final Result Performing Organization Address City/[facility] Co de Phone Number [facility] - 01 * Total testosterone (06/24/2025 8:00 AM CDT) [facility] Testosterone 12 4 - 50 ng/dL [facility] - 01 Blood 06/24/2025 8:00 AM CDT 06/24/2025 Narrative [facility] - 06/25/2025 12:10 PM CDT Performed at: [address] [place] [id number] Rehab Director Occupational Therapist: Varun Sorto PhD, Phone: [phone] Norma ADAMSON LAB BLOOD ORDERABLES Final Result Performing Organization Address City/[facility] Co de Phone Number [facility] - 01 * (ABNORMAL) Lipid panel (06/24/2025 8:00 AM CDT) [facility] Cholesterol 205(H) 100 - 199 mg/dL [facility] - 01 Triglycerides 96 0 - 149 mg/dL [facility] - 01 HDL Cholesterol 56 >39 mg/dL [facility] - 01 VLDL 17 5 - 40 mg/dL [facility] - 01 LDL, calculated 132(H) 0 - 99 mg/dL [facility] - 01 Blood 06/24/2025 8:00 AM CDT 06/24/2025 Narrative [facility] - 06/25/2025 8:11 AM CDT Performed at: 01 - [address] [id number] Rehab Director Occupational Therapist: Varun Sorto PhD, Phone: [phone] us Norma ADAMSON LAB BLOOD ORDERABLES Final Result [facility] - 01 * (ABNORMAL) Comprehensive metabolic panel (06/24/2025 8:00 AM CDT) [facility] Glucose 100(H) 70 - 99 mg/dL [facility] - 01 BUN 17 6 - 24 mg/dL [facility] - 01 Creatinine, Serum 0.74 0.57 - 1.00 mg/dL [facility] - 01 eGFR 104 >59 mL/min/1.7 3 [facility] - 01 BUN/creat ratio 23 9 - 23 [facility] - 01 Sodium 139 134 - 144 mmol/L [facility] - 01 Potassium, sr 5.2 3.5 - 5.2 mmol/L [facility] - 01 Chloride 101 96 - 106 mmol/L [facility] - 01 CO2 21 20 - 29 mmol/L [facility] - 01 Calcium 9.7 8.7 - 10.2 mg/dL [facility] - 01 Protein, sr 7.4 6.0 - 8.5 g/dL [facility] - 01 Albumin 4.5 3.9 - 4.9 g/dL [facility] - 01 Globulin, Total 2.9 1.5 - 4.5 g/dL [facility] - 01 Bilirubin, Total 0.3 0.0 - 1.2 mg/dL [facility] - 01 Alk phos 85 44 - 121 IU/L [facility] - 01 AST 24 0 - 40 IU/L [facility] - 01 ALT 45(H) 0 - 32 IU/L [facility] - 01 Blood 06/24/2025 8:00 AM CDT 06/24/2025 Narrative [facility] - 06/25/2025 8:11 AM CDT Performed at: [facility] [id number] Rehab Director Occupational Therapist: Varun Sorto PhD, Phone: [phone] us Norma ADAMSON LAB BLOOD ORDERABLES Final Result [facility] - 01 * MAMMOGRAPHY (09/14/2024 4:14 PM CDT) Anatomical Region Laterality Modality Breast Mammography Historical Provider MD LONG MAMMO PROCEDURES Arti l Result * ThinPrep Pap (06/01/2014 9:15 AM CDT) Thin Prep Pap Smear SEE BELOW () 06/07 7:34 PM CDT [facility][NOTE 3] HISTORICAL RESULTS Comment: Corn [employer] Baler ThinPrep Cytology Final Report ThinPrep Pap Specimen Source Cervix/Endocervix Specimen Adequacy Satisfactory for interpretation, endocervical cells (transformation zone) present. Interpretation Negative for intraepithelial lesion or malignancy. 06/07/14 Pickling Operator: CHAR Garcia(ASCP) 06/07/14 Verified By: CHAR Garcia(ASCP) electronic signature [facility], Department of Pathology For questions regarding this case, call ext. [phone] CPT Code(s) 27368 Clinical History LMP: [id number] : N : N IUD: N Hormone Therapy: N Postmenopausal: N Previous surgery date and type: N Hysterectomy: N Chemotherapy: N SHANIQUA Exposure: N Radiation: N Previous Abnormal Pap? Details: N Diagnostic or Screening Pap Test: Screening Performed by [facility], [address] [place] [address],[place] [id number] [email or web address], Yvan Barr MD - Lab. Director 06/01/2014 9:15 AM CDT 06/01/2014 12:53 PM CDT Jacque Howardgle THIRD RAIL INSTALLER LAB PATHOLOGY ORDERABLES Fin al Result [facility][NOTE 3] HISTORICAL RESULTS from Last 3 Months or Most Recently Relevant to Health Maintenance Insurance Care Teams Electric Detector Operator Relationship Specialty Start Date End Date Christophe Banegas MD [address] [place] [id number] PCP - General Internal Medicine 06/28/19
--- OUTSIDE RECORDS SUMMARY | 2025-09-09 12:21 | XMS_ITS | Encounter Summary ---
Author Organization [facility] Address [address] [place] [address] Care Team Providers Care Interactive Media Project Manager Name Role Phone Unavailable Primary Care Provider Unavailabl e Encounter Details Date Type Department Care Team (Late st Contact Info) Description 04/18/2020 Lab Requisition [facility] DermPath Lab [address] [place] [address] Julius Cabrales MD [address] [place] [address] Social History Tobacco Use Types Packs/Day Years Used Date Smoking Tobacco: Never Assessed Comments Unknown Sex and Gender Information Value Date Recorded Sex Assigned at Not on file Legal Sex Female 3:28 PM CDT Gender Identity Not on file Sexual Orientation Not on file documented as of this encounter Plan of Treatment Not on file documented as of this encounter Procedures Procedure Name Priority Date/Time Associated Diagnosis Comments DERMATOPATHOLOGY Routine 04/14/2020 12:0 0 AM CDT documented in this encounter Results * DERMATOPATHOLOGY (04/14/2020 12:00 AM CDT) Case Report Dermatopathology Report Case: [id number] Authorizing Provider: Julius Cabrales MD Collected: 04/14/2020 12:00 AM Ordering Location: [facility] DermPath Lab Received: 04/18/2020 07:17 AM Pathologist: Sonal Roman MD Specimen: Skin, left shoulder 0 2:25 PM CDT DERMATOPATHOLOGY LABORATORY Final Diagnosis Specimen A. 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 Path# [id number] 0 2:25 PM CDT DERMATOPATHOLOGY LABORATORY Gross Description Specimen A: Received is one formalin filled container labeled with the patient's name and designated left shoulder. The specimen consists of a shave biopsy measuring [id number]. Jar 0. 0 2:25 PM CDT DERMATOPATHOLOGY LABORATORY Microscopic Description Specimen A. SKIN, left shoulder: There are nests of melanocytes at the dermal-epidermal junction. There is melanin pigment in the stratum corneum. Sections show abundant melanin within melanophages around the superficial vascular plexus. 0 2:25 PM CDT DERMATOPATHOLOGY LABORATORY Disclaimer An external and internal positive and negative controls are appropriate for the histochemical, immunohistochemical and immunofluorescence stain(s) in this case (if any), except where stated explicitly. The performance characteristics of the stain(s) cited in this report were developed and its performance characteristic determined by the Dermatopathology Laboratory at [facility], directed by Dr. Ryland Bailey. These tests need not be, and therefore are not, approved by the [place] Food and Drug Administration. The tests are used for clinical purposes. Billing Codes Specimen Charges Stain Charges 38342 1 0 2:25 PM CDT DERMATOPATHOLOGY LABORATORY Embedded Images 0 2:25 PM CDT DERMATOPATHOLOGY LABORATORY Pathology/Cytolog y TISSUE SPECIMEN FROM SKIN / Unknown 04/14/2020 04/18/2020 7:17 AM CDT us Julius Cabrales MD LAB - PATHOLOGY/CYTOLOGY ORDER NELA Final Result DERMATOPATHOLOGY LABORATORY [facility] - Department of Dermatology Vocational Services Specialist [place]/[address] [phone] documented in this encounter Visit Diagnoses Not on filedocumented in this encounter
--- OUTSIDE RECORDS SUMMARY | 2025-09-09 12:21 | XMS_ITS | Clinical Summary ---
Author Organization [facility] Address [address] [place] [address] Care Team Providers Care Customer Sales Service Manager Name Role Phone Christophe Banegas MD Primary Care Provider [phone] Immunizations Immunization Administration Dates Next Due MODERNA COVID-19 (12+) MRNA, LNP-S, PF, 100 MCG/ 0.5 ML DOSE 12/28/2020,11/30/2020 Social History Tobacco Use Types Packs/Day Years Used Date Smoking Tobacco: Never Assessed Comments Unknown Sex and Gender Information Value Date Recorded Sex Assigned at Not on file Legal Sex Female 7:06 PM CDT Gender Identity Not on file Sexual Orientation Not on file Plan of Treatment Health Maintenance Due Date Last Done Comments Cervical Cancer Screening Pa p Smear (Age 30 to 64) Every 3 Years 1983 Annual Physical 1986 Hepatitis C 2001 Hepatitis B Vaccines (1 of 3 - 19+ 3-dose series) 2002 HPV Vaccines (1 - 3-dose SCD M series) 2010 Cervical Cancer Screening Pa p with HPV Testing (Age 30 to 64) Every 5 Years 2013 Cervical Cancer Screening wi th HPV 2013 DTaP, Tdap and Td Vaccines ( 2 - Td or Tdap) 11/19/2020 11/19/2010 COVID-19 Vaccine (3 - 2024-2 6 season) 2025 12/28/2020, 11/30/2020 Influenza Adult (#1) 2025 08/03/2020 Mammogram Screening 11/03/2026 11/03/2024, 04/08/2014 Hepatitis A Vaccines Aged Out No long er eligible based on patient's age to complete this topic Meningococcal B Vaccine Aged Out No l onger eligible based on patient's age to complete this topic Meningococcal Vaccine Aged Out No sarai jim eligible based on patient's age to complete this topic Pneumococcal Vaccine: Pediatrics (0 to 5 Years) and At-Risk Patients (6 to 49 Years) Aged Out No longer eligible b ased on patient's age to complete this topic RSV Immunizations Under 20 Months Aged Out No longer eligible b ased on patient's age to complete this topic Procedures Procedure Name Priority Date/Time Associated Diagnosis Comments MG DIAGNOSTIC RT DIGI Routine 11/03/2024 2:34 PM INSTITUTIONAL ASSET MANAGER Breast mass, right from Last 3 Months or Most Recently Relevant to Health Maintenance Results * MG DIAGNOSTIC RT DIGI (11/03/2024 2:34 PM INSTITUTIONAL ASSET MANAGER) Anatomical Region Laterality Modality Breast Right Mammography 11/03/2024 2:38 PM INSTITUTIONAL ASSET MANAGER Impressions 11/03/2024 2:39 PM INSTITUTIONAL ASSET MANAGER =====IMPRESSION:===== Postbiopsy mammogram, grossly appropriate clip placement. ASSESSMENT: WAITING FOR PATHOLOGY Recommendation: 1: Waiting on Pathology Right COMMENTS: Ordered By: KENDY RUIZ Interpreted By: Gio Bray, 11/03/2024 2:38 PM Narrative 11/03/2024 2:39 PM INSTITUTIONAL ASSET MANAGER [facility] [address] [place] [address] EXAMINATION: Digital right diagnostic mammogram with 3-D tomography EXAM DATE/TIME: 11/03/2024 2:29 PM REASON FOR EXAM: Right breast mass, upper outer quadrant, status post biopsy COMPARISON: Outside facility studies from 10/06/2024 and 09/14/2024 TECHNIQUE: Digital diagnostic mammography of the right breast was performed in addition to 3-D Tomosynthesis technique. . This study was read with the assistance of a computer-aided detection system. TISSUE DENSITY: There are scattered areas of fibroglandular density. FINDINGS: Postbiopsy changes right upper outer quadrant. Grossly appropriate clip placement. us Kendy Ruiz MD MAMMO Final Result from Last 3 Months or Most Recently Relevant to Health Maintenance Insurance [facility] Care Teams Customer Sales Service Manager Relationship Specialty Start Date End Date Christophe Banegas MD [address] [place] [address] PCP - General 10/28/24
--- OUTSIDE RECORDS SUMMARY | 2025-09-09 12:22 | XMS_ITS | Encounter Summary ---
Author Organization [facility] Address [address] [place] [address] Care Team Providers Care Regulatory Affairs Coordinator Name Role Phone Christophe Banegas MD Primary Care Provider + Encounter Details Date Type Department Care Team (Late st Contact Info) Description 11/03/2024 Orders Only [facility] Health Information Management [address] [place] [address] Scanning, Provider Social History Tobacco Use Types Packs/Day Years Used Date Smoking Tobacco: Never Smokeless Tobacco: Never Alcohol Use Standard Drinks/Week Comments Yes 0 (1 standard drink = 0.6 oz pur e alcohol) rarely AUDIT-C Answer Date Recorded Q1: How often do you have a drink containing alc ohol? Monthly or less 04/16/2024 Q2: How many drinks containi ng alcohol do you have on a typical day when you are drinking? 1 or 2 04/16/2024 Q3: How often do you have si x or more drinks on one occasion? 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 ENGINEER Gender Identity Female 04/16/2024 9:25 AM CDT Sexual Orientation Not on file documented as of this encounter Plan of Treatment Not on file documented as of this encounter Procedures Procedure Name Priority Date/Time Associated Diagnosis Comments SCAN - PATHOLOGY 11/03/2024 documented in this encounter Results * SCAN - PATHOLOGY (11/03/2024) us Provider Scanning Final Result documented in this encounter Visit Diagnoses Not on filedocumented in this encounter Care Teams Regulatory Affairs Coordinator Relationship Specialty Start Date End Date Christophe Banegas MD [address] [place] [address] PCP - General Internal Medicine 06/28/19 documented as of this encounter
--- OUTSIDE RECORDS SUMMARY | 2025-09-09 12:22 | XMS_ITS | Patient Health Record ---
Author Organization [facility] ([address]) Address [address] [place] [address] Care Team Providers Care Roof Tile Layer Name Role Phone Makenzie CHAIREZ, Christophe Primary Care Provider Reilly Kirkland Unavailable [phone] Ari Garrett Unavailable [phone] Deborah Payne Unavailable [phone] Results Component Value Reference Range Notes -Testosterone, Serum Reviewed date:12/27/2024 12:18:39 PM Interpretation: Performing Lab:[facility], [address] [place] [id number], Phone - [phone], Director - PhDBrighti Notes/Report: Testosterone 161 4-50 ng/dL -Triiodothyronine (T3),Free, Serum Reviewed date:12/27/2024 12:18:39 PM Interpretation: Performing Lab:[facility], [address] [place] [id number], Phone - [phone], Director - PhDRicalbert b. chandler hospitaluti Notes/Report: Triiodothyronine (T3), Free 3.6 2.0-4.4 pg/mL -Vitamin D, 25-Hydroxy Reviewed date:12/27/2024 12:18:39 PM Interpretation: Performing Lab:[facility], [address] [place] [id number], Phone - [phone], Director - PhDRicalbert b. chandler hospitaluti Notes/Report: Vitamin D, 25-Hydroxy 37.9 30.0-100.0 ng/mL Vitamin D deficiency has been defined by the [place] of [employer] and an Endocrine Society practice guideline as a level of serum 25-OH vitamin D less than 20 ng/mL (1,2). The Endocrine Society went on to further define vitamin D insufficiency as a level between 21 and 29 ng/mL (2). 1. IOM ([place] [employer]). 2010. Dietary reference intakes for calcium and D. [place]: The National AcademDujour App Press. 2. Mitch MF, Radha HERNANDEZ, Jeff NIÑO, et al. Evaluation, treatment, and prevention of vitamin D deficiency: an Endocrine Society clinical practice guideline. JCEM. 2010; 96(0):1911-30. Reason For Referral No Information Medications Medication SIG (Take, Route, Frequency, Duration) Notes Start Date End Date Status Amoxicillin 500 MG 1 capsule Orally every 8 hrs; Duration: 5 days 09/13/2024 Active ASPHALT PLANT WORKER Thyroid 15 MG 1 tablet on an empty stomach Orally Once a day; Duration: 30 days Patient isn't taking at this time. She is on Levothyroxine and doesn't want to switch. Active Fluconazole 150 MG 1 tablet Orally; Duration: 10 days 09/16/2024 Active ASPHALT PLANT WORKER Thyroid 90 MG 1 tablet on an empty stomach Orally Once a day; Duration: 30 days Patient isn't taking. Using Levothyroxine. Active VSL#3 - 2 cap(s) orally once a day Active Social History Sex Assigned At : Social History Observation Description Sex Assigned At Female Problems Problem Type SNOMED Code ICD Code Onset Dates Problem Status W/U Status Risk Notes Problem Hypothyroidism (34822290) Hypothyroidism, unspecified (E03.9) Active confirmed Problem Morbid obesity (disorder) (893175040) Morbid (severe) obesity due to excess calories (E66.01) Active confirmed Problem Sleep apnea (56620589) Sleep apnea, unspecified (G47.30) Active confirmed Problem Obstructive sleep apnea syndrome (disorder) (28317113) Obstructive sleep apnea (adult) (pediatric) (G47.33) Active confirmed Problem Essential hypertension (84160819) Essential (primary) hypertension (I10) Active confirmed Problem Gastro-esophageal reflux disease without esophagitis (838039864) Gastro-esophagea l reflux disease without esophagitis (K21.9) Active confirmed Problem Chronic fatigue syndrome (disorder) (66344318) Chronic fatigue, unspecified (R53.82) Active confirmed Problem Abnormal weight gain (265478667) Abnormal weight gain (R63.5) Active confirmed Problem Hormone replacement therapy (096875044) Hormone replacement therapy (Z79.890) Active confirmed Problem Obesity (954201783) Obesity, unspecified (E66.9) Active confirmed Problem Sleep disorder (98150667) Other sleep disorders (G47.8) Active confirmed Problem Hypersomnia (50322707) Hypersomnia, unspecified (G47.10) Active confirmed Procedures Procedure Date Ordered Date Performed Result Body Sit e Sleep Study WatchPAT 300 (Zoll-Shane) 06/28/2025 N/A Encounters Encounter Location Date Provider Diagnosis [facility] ([address]) [address] [place] [address] 01/03/2025 Reilly Nixon Hormone replacement therapy Z79.890 [facility] ([address]) [address] [place] [address] 01/12/2025 Reilly Nixon [facility] [address] [facility] [address] [place] [address] 06/28/2025 Reilly Nixon Obstructive sleep apnea (adult) (pediatric) G47.33 ; Sleep apnea, unspecified G47.30 ; Snoring R06.83 ; Hypersomnia, unspecified G47.10 ; Other sleep disorders G47.8 and Obesity, unspecified E66.9 [facility] - [place] [address] [place] [address] 09/13/2024 Deborah Payne Acute pharyngitis, unspecified J02.9 [facility] - [place] [address] [place] [address] 09/16/2024 Deborah Payne Candidiasis, unspecified B37.9 [facility] - [place] [address] [place] [address] 09/16/2024 Deborah Payne [facility] - [place] [address] [place] [address] 10/18/2024 Ari Garrett Hypothyroidism, unspecified E03.9 ; Other fatigue R53.83 and Abnormal weight gain R63.5 [facility] - [place] [address] [place] [address] 04/06/2025 Deborah Babin - [facility] [place] ([address]) [address] [place] [address] 06/30/2025 Reilly Nixon Assessments Encounter Date Diagnosis (ICD Code) Assessment Notes Treatment Notes Treatment Clinical Notes Section Notes 09/16/2024 Candidiasis, unspecified (ICD-10 - B37.9) 01/03/2025 Hormone replacement therapy (ICD-10 - Z79.890) 06/28/2025 Sleep apnea, unspecified (ICD-10 - G47.30) 06/28/2025 Obstructive sleep apnea (adult) (pediatric) (ICD-10 - G47.33) WatchPAT Sleep Study Unit was provided to the patient for tonight's planned procedure. Return tomorrow morning by 9 AM. 09/13/2024 Acute pharyngitis, unspecified (ICD-10 - J02.9) 10/18/2024 Hypothyroidism, unspecified (ICD-10 - E03.9) 10/18/2024 Other fatigue (ICD-10 - R53.83) 10/18/2024 Abnormal weight gain (ICD-10 - R63.5) 06/28/2025 Snoring (ICD-10 - R06.83) 06/28/2025 Hypersomnia, unspecified (ICD-10 - G47.10) 06/28/2025 Other sleep disorders (ICD-10 - G47.8) 06/28/2025 Obesity, unspecified (ICD-10 - E66.9) Plan Of Treatment Pending Test Test Name Order Date -HRT Female Pre Pellet 12/16/2023 Sleep Study WatchPAT 300 (Zoll-Shane) 0 06/15/2024 Sleep Study WatchPAT 300 (Zoll-Shane) 0 06/28/2025 Insurance Providers Payer Name Payer Address Payer Phone Subscriber Number Group Number Insured Name Patient Relationship to Insured Coverage Start Date Coverage End Date [facility] [employer] [address] [address] [place] [address] [id number] February Self - patient is the insured Medical (General) History Medical History History ICD Code Essential (primary) hypertension I10
--- OUTSIDE RECORDS SUMMARY | 2025-09-09 12:22 | XMS_ITS | Encounter Summary ---
Author Organization [facility] Facility Care Team Providers Care Assistant Drafter Name Role Phone Christophe Banegas MD Primary Care Provider + Encounter Details Date Type Department Care Team (Latest Contact Info) Description 03/06/2014 Orders Only [facility] ProviderMarlo MD [address] [place] [address] Social History Tobacco Use Types Packs/Day Years Used Date Smoking Tobacco: Never Assessed Comments Unknown Sex and Gender Information Value Date Recorded Sex Assigned at Not on file Legal Sex Female 7:34 PM ENERGY AND CONSERVATION TECHNICIAN Gender Identity Female 04/16/2024 9:25 AM CDT Sexual Orientation Not on file documented as of this encounter Plan of Treatment Not on file documented as of this encounter Procedures Procedure Name Priority Date/Time Associated Diagnosis Comments SCAN - LABS 05/05/2018 12:00 AM CDT documented in this encounter Results * SCAN - LABS (05/05/2018 12:00 AM CDT) Narrative 05/05/2018 12:00 AM CDT Ordered by an unspecified provider. us Historical Provider Final Res ult documented in this encounter Visit Diagnoses Not on filedocumented in this encounter Care Teams Assistant Drafter Relationship Specialty Start Date End Date Christophe Banegas MD [address] [place] [address] PCP - General Internal Medicine 06/28/19 documented as of this encounter
--- OUTSIDE RECORDS SUMMARY | 2025-09-09 12:22 | XMS_ITS | Encounter Summary ---
Author Organization [facility] Facility Care Team Providers Care Contract Modeler Name Role Phone Christophe Banegas MD Primary Care Provider + Encounter Details Date Type Department Care Team (Latest Contact Info) Description 12/29/2017 Orders Only [facility] ProviderMarlo MD [address] [place] [address] Social History Tobacco Use Types Packs/Day Years Used Date Smoking Tobacco: Never Assessed Comments Unknown Sex and Gender Information Value Date Recorded Sex Assigned at Not on file Legal Sex Female 7:34 PM SIZE MAKER Gender Identity Female 04/16/2024 9:25 AM CDT [...] on filedocumented in this encounter Care Teams Contract Modeler Relationship Specialty Start Date End Date Christophe Banegas MD [address] [place] [address] PCP - General Internal Medicine 06/28/19 documented as of this encounter
--- OUTSIDE RECORDS SUMMARY | 2025-09-09 12:22 | XMS_ITS | Encounter Summary ---
Author Organization [facility] Facility Care Team Providers Care Audio Tape Librarian Name Role Phone Christophe Banegas MD Primary Care Provider + Encounter Details Date Type Department Care Team (Latest Contact Info) Description 11/25/2017 Orders Only [facility] ProviderMarlo MD [address] [place] [address] Social History Tobacco Use Types Packs/Day Years Used Date Smoking Tobacco: Never Assessed Comments Unknown Sex and Gender Information Value Date Recorded Sex Assigned at Not on file Legal Sex Female 7:34 PM BUYER GRAIN Gender Identity Female 04/16/2024 9:25 AM CDT [...] on filedocumented in this encounter Care Teams Audio Tape Librarian Relationship Specialty Start Date End Date Christophe Banegas MD [address] [place] [address] PCP - General Internal Medicine 06/28/19 documented as of this encounter
--- OUTSIDE RECORDS SUMMARY | 2025-09-09 12:22 | XMS_ITS | Encounter Summary ---
Author Organization [facility] Facility Care Team Providers Care Vehicle Service Agent Name Role Phone Christophe Banegas MD Primary Care Provider + Encounter Details Date Type Department Care Team (Latest Contact Info) Description 03/04/2014 Orders Only [facility] CLINCON[facility] ProviderMarlo MD [address] [place] [address] Social History Tobacco Use Types Packs/Day Years Used Date Smoking Tobacco: Never Assessed Comments Unknown Sex and Gender Information Value Date Recorded Sex Assigned at Not on file Legal Sex Female 7:34 PM RADIOLOGIC ELECTRONIC SPECIALIST Gender Identity Female 04/16/2024 9:25 AM CDT [...] on filedocumented in this encounter Care Teams Vehicle Service Agent Relationship Specialty Start Date End Date Christophe Banegas MD [address] [place] [address] PCP - General Internal Medicine 06/28/19 documented as of this encounter
--- OUTSIDE RECORDS SUMMARY | 2025-09-09 12:22 | XMS_ITS | Encounter Summary ---
Author Organization [facility] Care Team Providers Care Panel Gluer Name Role Phone Christophe Banegas MD Primary Care Provider + Encounter Details Date Type Department Care Team (Latest Contact Info) Description 02/18/2018 Orders Only [facility] CLIN[facility] ProviderMarlo MD [address] [place] [address] Social History Tobacco Use Types Packs/Day Years Used Date Smoking Tobacco: Never Assessed Comments Unknown Sex and Gender Information Value Date Recorded Sex Assigned at Not on file Legal Sex Female 7:34 PM HOSPITAL LABORATORY TECHNICIAN Gender Identity Female 04/16/2024 9:25 AM [...] on filedocumented in this encounter Care Teams Panel Gluer Relationship Specialty Start Date End Date Christophe Banegas MD [address] [place] [address] PCP - General Internal Medicine 06/28/19 documented as of this encounter
--- OUTSIDE RECORDS SUMMARY | 2025-09-09 12:23 | XMS_ITS | Encounter Summary ---
Author Organization [facility] Facility Care Team Providers Care Head Rigger Name Role Phone Christophe Banegas MD Primary Care Provider + Encounter Details Date Type Department Care Team (Latest Contact Info) Description 07/13/2011 Orders Only [facility] ProviderMarlo MD [address] [place] [address] Social History Tobacco Use Types Packs/Day Years Used Date Smoking Tobacco: Never Assessed Comments Unknown Sex and Gender Information Value Date Recorded Sex Assigned at Not on file Legal Sex Female 7:34 PM MARINE MECHANIC Gender Identity Female 04/16/2024 9:25 AM CDT [...] on filedocumented in this encounter Care Teams Head Rigger Relationship Specialty Start Date End Date Christophe Banegas MD [address] [place] [address] PCP - General Internal Medicine 06/28/19 documented as of this encounter
--- NOTE | 2025-09-09 12:30 | ED.WOUNDLAC ---
HPI - Wound/Laceration General Chief Complaint: Wound/Laceration Stated Complaint: Laceration to Left Hand Time Seen by Provider: 09/09/25 12:31 Source: patient Mode of arrival: ambulatory Limitations: no limitations History of Present Illness HPI narrative: 40 yo F presents with c/o laceration to L hand. Cut herself on glass cup in her kitchen. bleeding controlled on arrival. tetanus UTD. All systems reviewed and negative except as noted above. Related Data Home Medications ?Medication ?Instructions ?Recorded ?Confirmed ?Last Taken ?Type levothyroxine 175 mcg tablet mcg 09/09/25 Unknown History phentermine 37.5 mg tablet mg 09/09/25 Unknown History Allergies Allergy/AdvReac Type Severity Reaction Status Date / Time meloxicam (From [employer]) Allergy Intermediate Hives Verified 09/09/25 12:30 morphine Allergy Intermediate Hives Verified 09/09/25 12:30 PMFSH Comments At time of signature, agree with nursing past medical, surgical, social and family history. There is no relevant family history pertinent to the presenting complaint. Exam Narrative: GENERAL: This is a well-nourished, well-developed patient, in no apparent distress. HEAD: normocephalic, atraumatic. EYES: PERRL. Sclera clear/white. Vision is grossly intact. EARS: External ears normal NOSE: External nose normal NECK: Neck supple, non-tender without lymphadenopathy, masses or thyromegaly. CARDIOVASCULAR: Regular rate and rhythm without murmurs, gallops, or rubs. RESPIRATORY: Clear to auscultation. Breath sounds equal bilaterally. No wheezes, rales, or rhonchi. SKIN: warm, Dry, intact with no suspicious lesions or rash, good texture and turgor. NEURO: awake, alert, and oriented to person, place and time. There were no obvious focal neurologic abnormalities. EXTREMITIES: laceration to lateral aspect L hand. approx. 2cm, U shaped laceration Course Course Level of Care: Express Care Visit Vital Signs Vital signs: Vital Signs Temperature 36.7 C 09/09/25 12:31 Pulse Rate 91 09/09/25 12:31 Respiratory Rate 18 09/09/25 12:31 Blood Pressure 142/75 H 09/09/25 12:31 Pulse Oximetry 100 09/09/25 12:31 Oxygen Delivery Room Air 09/09/25 12:31 Temperature 36.7 C 09/09/25 12:31 Pulse Rate 91 09/09/25 12:31 Respiratory Rate 18 09/09/25 12:31 Blood Pressure 142/75 H 09/09/25 12:31 Pulse Oximetry 100 09/09/25 12:31 Oxygen Delivery Room Air 09/09/25 12:31 Reviewed Procedures Laceration Laceration 1: Date: 09/09/25 Time: 12:40 Site: hand Side (If applicable): left Size (cm): 2 Description: flap and irregular Depth: simple, single layer Local Anesthetic: lidocaine 1% Amount of anesthesia used (mL): 3 Pre-repair: wound explored and irrigated ====== Skin Level ====== Skin layer closed with: nylon Size (cm): 4-0 Number of sutures: 6 Technique: simple, interrupted ====== Subcutaneous Layer ====== ====== Muscle Layer ====== ====== Tendon Layer ====== MDM - Wound/Laceration MDM Narrative Medical decision making narrative: laceration repaired with sutures. Patient tolerated well. Neurovascularly intact pre and postprocedure. Differential Diagnosis Differential diagnosis: Likely laceration Discharge Plan Discharge Clinical Impression: Laceration of hand, left Qualifiers: Encounter type: initial encounter Foreign body presence: without foreign body Qualified Code(s): S61.412A - Laceration without foreign body of left hand, initial encounter Patient Disposition: Home Condition: Stable Instructions: Care For Your Stitches (ED), Laceration (ED) Additional Instructions: Keep wound clean and dry. Wash with a mild soap and water. Do not pull or scrub at sutures. May apply an [id number] antibiotic ointment twice a day for 3-5 days such as triple antibiotic ointment. Follow-up in 7-10 days for suture removal. Patient Language: Icelandic Prescriptions: No Action levothyroxine 175 mcg tablet phentermine 37.5 mg tablet Follow-up/Referrals: Makenzie,Christophe Nunez MD [Primary Care Provider] Time of Disposition: 12:54
[2025-09-09 12:31] VITALS: BP 142/75; PULSE 91; RESP 18; TEMP 36.7; O2SAT 100
[2025-09-09] MEDS: LIDOCAINE 1% LOCAL INJ 2 ML AMPUL 4 ML INFILTRATE (12:37)
== END 2025-09-09 13:03 | disposition home or self-care (01) ==
PROVIDERS: Emergency Provider Nurse Practitioner Family; PCP Internal Medicine
DX: S61.412A Laceration without foreign body of left hand, initial encounter (principal); W25.XXXA Contact with sharp glass, initial encounter; Z79.899 Other long term (current) drug therapy
CPT/HCPCS: 12001; 99212; G0463; J2003